=== PATIENT | female | born 1965 | race Caucasian/White ===

== ENCOUNTER → 2024-02-24 07:34 | Outpatient (REF) | payer BC, SELFPAY | LOC: PAVMRI 07:34 | PROVIDERS: ATTENDING PHYSICIAN Nurse Practitioner Family | DX: M54.32 Sciatica, left side (principal); R20.2 Paresthesia of skin; R53.1 Weakness | CPT/HCPCS: 72148 ==

== ENCOUNTER 2025-03-23 12:43 | Day surgery (SDC) | payer BC, SELFPAY ==
[2025-03-23] VITALS (10 sets, daily range): BP systolic 95–176; BP diastolic 56–80; BMI 28.7
[2025-03-23] MEDS: TYLENOL 1000 MG PO (13:08)
[2025-03-23] MEDS: NORMOSOL-R/PLASMALYTE-A 1000 IV (13:08)
--- NOTE | 2025-03-23 19:30 | W.IMMPOSTOP ---
Surgical Immed Post Op Note
-
Primary Surgeon: Jani Peterson MD
Assisting Surgeon: Kiran Galan PA-C
Pre-op Diagnosis: right proximal humerus fracture
Post-op Diagnosis: right proximal humerus fracture
Procedure Performed: open reduction internal fixation right proximal humerus fracture
Anesthesia Type: general
Specimen / Cultures: none
Estimated Blood Loss: 50mL
Complications: none apparent
Operative Findings: valgus impacted proximal humerus fracture without bony apposition
Implants: [place] AxSOS 3 proximal humerus 3 hole plate
Operative dictation #: [id number]
--- NOTE | 2025-03-23 20:20 | PTCARENOTE ---
pt arrived from PACU @ 2019 s/p right humerus ORIF; aquacel dressing CDI; IVF per order; NC @ 2L; VSS; pt AOx3; Bed locked and in lowest position; call bernard within reach; care ongoing.
[2025-03-23] MEDS: COLACE 100 MG PO (20:45)
[2025-03-23] MEDS: NEURONTIN 300 MG PO (22:26)
[2025-03-24] MEDS: ANCEF 5 IV ×2 (00:19→07:58)
[2025-03-24 03:05] VITALS: BP 121/74
[2025-03-24] MEDS: ROXICODONE 5 MG PO (06:35)
[2025-03-24 07:01] LABS: Hematocrit 26.3 % (37.0-47.0); Hemoglobin 8.7 g/dL (12.0-16.0)
[2025-03-24 07:08] LABS: INR 1.02; PT 13.7 Sec (11.4-14.6)
[2025-03-24 07:09] LABS: APTT 31.5 Sec (23.4-35.0)
[2025-03-24 07:10] VITALS: BP 131/74
[2025-03-24 07:28] LABS: Blood Urea Nitrogen 11 mg/dl (7-17); Calcium 8.9 mg/dl (8.4-10.2); Carbon Dioxide 28 mmol/L (22-30); Chloride 106 mmol/L (98-107); Estimated Creatinine Clearance 108 ml/min; Glucose 103 mg/dl (70-99); Potassium 4.5 mmol/L (3.5-5.1); Sodium 138 mmol/L (135-145); eGFR > 60.00
[2025-03-24] MEDS: COLACE 100 MG PO ×2 (07:57→19:36)
[2025-03-24] MEDS: FLUSH (NSS) 1 FLUSH IV (07:58)
[2025-03-24] MEDS: TYLENOL 650 MG PO (09:28)
[2025-03-24] MEDS: ROXICODONE 10 MG PO ×4 (10:30→23:55)
[2025-03-24 11:30] VITALS: BP 140/78
--- NOTE | 2025-03-24 11:37 | W.PN.ORTHO ---
Today's Communication / Plan
-
59F POD 1 R proximal humerus ORIF w/ Dr. Peterson
- Nonweightbearing to right upper extremity
- PT/OT consult placed; patient has primarily been with a walker secondary to recent spine surgery and is now nonweightbearing.
- DVT PPx: ASA 81 mg daily twice daily for 30 days
- Pain regimen in place; her spine surgeons prefer to avoid NSAIDs given recent fusion
- Regular diet
- Potential for discharge however pending PT/OT recommendations, possible discharge planning
Assessment
.
Distal Motor Intact: Yes
Dressing:
Clean, dry and intact.
Assessment:
x-rays of the right shoulder show s/p R proximal humerus ORIF without evidence of complication
Plan
.
Surgery / Date: R proximal humerus ORIF w/ Dr. Peterson
DVT Prophylaxis: Aspirin
Activity:
Out of bed.
PT/OT
Subjective
.
.:
Patient resting comfortably.
Vital Signs and Labs
.
Vital Signs and Labs:
Lab Results
03/24/25 06:18
03/24/25 06:18
Temp Pulse Resp BP Pulse Ox
98.3 F 87 16 131/74 96
03/24/25 07:10 03/24/25 07:10 03/24/25 07:10 03/24/25 07:10 03/24/25 11:21
PT 13.7 Sec (11.4-14.6) 03/24/25 06:18
INR 1.02 03/24/25 06:18
[2025-03-24] MEDS: LOW STRENGTH ASPIRIN 81 MG PO ×2 (11:48→19:36)
[2025-03-24] MEDS: DILAUDID 0.25 MG IV ×3 (11:48→19:36)
--- NOTE | 2025-03-24 12:59 | CM ---
CM following re: discharge planning.
Reviewed pt's chart, met with pt.
Pt is a 59 year old female, admitted with primary dx of Right proximal humerus fracture. POD#1 s/p R proximal humerus ORIF
Pt reports she lives with and a son in a townhouse, has 2 supportive children. Pt reports she had back surgery in the past and has at home following DME: walker, w/c, BSC, shower chair, raised toilet sit. Pt expressed her desire to return
back home with possible outpatient therapy or home PT/OT.
PT and OT will evaluate the pt to determine a level of care at discharge.
PCP: [facility] Culp
Pharmacy: [facility]
D/C plan: pt feels she will return back home with possible outpatient therapy or home PT/OT. Awaiting for PT/OT evaluations and recommendations.
CM will follow with discharge plan updates as hospitalization progresses
[2025-03-24 14:06] VITALS: BP 146/80; PULSE 96; O2SAT 96
[2025-03-24 15:05] VITALS: BP 154/79
[2025-03-24 19:00] VITALS: BP 142/73
[2025-03-24] MEDS: NEURONTIN 300 MG PO (21:44)
[2025-03-24] MEDS: MELATONIN 5 MG PO (21:44)
[2025-03-25 00:13] VITALS: BP 132/78
[2025-03-25] MEDS: DILAUDID 0.25 MG IV (01:18)
[2025-03-25 04:23] VITALS: BP 129/75
[2025-03-25 07:05] VITALS: BP 106/68
--- NOTE | 2025-03-25 07:21 | W.PN.ORTHO ---
Today's Communication / Plan
-
59-year-old female POD #2 right proximal humerus ORIF with Dr. Peterson.
- Nonweightbearing to right upper extremity in sling.
- PT/OT.
- DVT PPx: ASA 81mg BID x 4 weeks.
- Pain regimen in place; her spine surgeons prefer to avoid NSAIDs given recent fusion. We will try Tylenol 1000 mg Q6 and Oxycodone for breakthrough pain; order adjusted.
- Regular diet.
- Potential for discharge later today depending upon pain control and PT/OT recommendations. Discussed with nurse.
Assessment
.
Distal Motor Intact: Yes
Dressing:
Clean, dry and intact.
Assessment:
POD #2 Right Proximal Humerus ORIF with Dr. Peterson.
Plan
.
Surgery / Date: R proximal humerus ORIF w/ Dr. Peterson
DVT Prophylaxis: Aspirin
Activity:
Out of bed.
PT/OT.
Sling to RUE.
Discharge Plan: Home
Discharge Information:
Appreciate CM.
Subjective
.
.:
Patient resting comfortably.
Vital Signs and Labs
.
Vital Signs and Labs:
Lab Results
03/24/25 06:18
03/24/25 06:18
Temp Pulse Resp BP Pulse Ox
98.4 F 87 18 129/75 94
03/25/25 04:23 03/25/25 04:23 03/25/25 04:23 03/25/25 04:23 03/25/25 04:23
PT 13.7 Sec (11.4-14.6) 03/24/25 06:18
INR 1.02 03/24/25 06:18
[2025-03-25] MEDS: TYLENOL 1000 MG PO ×2 (07:52→13:39)
[2025-03-25] MEDS: LOW STRENGTH ASPIRIN 81 MG PO (07:53)
[2025-03-25] MEDS: ROXICODONE 10 MG PO ×2 (07:53→16:32)
[2025-03-25] MEDS: SENOKOT 8.6 MG PO (07:53)
[2025-03-25] MEDS: COLACE 100 MG PO (07:53)
[2025-03-25 10:36] VITALS: BP 136/73; PULSE 85; O2SAT 97
[2025-03-25] MEDS: ROXICODONE 5 MG PO (12:03)
--- NOTE | 2025-03-25 12:35 | CM ---
CM following re: discharge planning.
Reviewed pt's chart, met with pt and pt's niece at bedside.
Pt is POD#2 s/p R proximal humerus ORIF, continue supportive care, pain control. Per Surgery, potential for discharge later today depending upon pain control.
Pt is aware, expressed her agreement and she stated her will transport home.
PT and OT evaluations noted - home PT vs no needs vs outpatient PT/OT recommended. Pt is aware and she stated she preferred outpatient therapy, she has a script to start outpatient therapy after 3 weeks.
Pt reports she lives with and a son in a townhouse, has 2 supportive children.
D/C plan: return back home with outpatient therapy and family support. to transport.
[2025-03-25 15:10] VITALS: BP 129/70
--- NOTE | 2025-03-25 15:53 | W.DCSUMMARY ---
Discharge Summary
Discharge Data
Date of Admission: 03/23/25
Date of Discharge: 03/25/25
Total time spent discharging patient (in min): 45
-
Pending Results: No
Hospital Course
59 year old right hand dominant
female who originally underwent spine surgery approximately 6 weeks ago. At the initial
presentation she was using a walker due to the recovery
from her spinal procedure and she sustained a ground level fall at
home. She landed on her knees and then her right shoulder. Due to
immediate pain and inability to use the right shoulder, she
presented to [facility] where X rays confirmed she had a
proximal humerus fracture. She was seen several days later by Dr. Peterson and
noted that there was minimal apposition of the valgus proximal
humerus fracture. Due to the need to use the right arm to assist in
ambulation as well the lack of bony apposition of the fracture, she
was indicated for open reduction internal fixation of right
proximal humerus fracture. The patient underwent a right proximal humerus ORIF with Dr. Jani Liang without complications. The patient recovered in PACU and was transferred to the floor. The post-operative course remained uncomplicated other
than some initial difficulty with pain control on orals medications as she is limited on NSAIDs at the request of her spine surgeon. At the time of discharge, the patient was noted to be tolerating a regular diet, ambulating with adherence to weight
bearing and activity restrictions, able to accomplish activities of daily living at baseline level, and had pain controlled on oral medications. Prior to discharge, the patient was provided with appropriate discharge/follow up/return instructions,
and discharge medications.
Discharge Plan
-
Patient Disposition: Home (Routine Discharge)
Discharge Diagnosis/Procedures: Right proximal humerus ORIF
Condition: Good
Diet: No restrictions and As tolerated
Activity: Other activity
Additional Activity: No weight bearing to right upper extremity, maintain sling at all times except to shower and dress
Driving Restrictions: Not until seen by your Dr
Bathing Restrictions: OK to Shower
Wound Care: Maintain current dressing until your first postoperative follow-up.
Activity Restrictions/Additional Instructions:
Recommend utilization of cane for balance in the left naty
Instructions: Surgery to fix a broken bone (DC)
Referrals:
Jani Peterson MD [Active, Orthopedics]
Referral Note: Please call to confirm or schedule your first postoperative visit which should be two weeks from the date of surgery
UNKNOWN - PT DOES,NOT KNOW [Family Provider]
Prescriptions:
New
docusate sodium 100 mg Capsule
100 mg PO BID Qty: 30 0RF
aspirin 81 mg Tablet,Chewable
81 mg PO BID Qty: 60 0RF
Continued
sennosides [senna] 8.6 mg Tablet
8.6 mg PO DAILY
acetaminophen 500 mg Tablet
1,000 mg PO Q6H PRN (Reason: pain)
gabapentin 300 mg Capsule
300 mg PO HS
oxycodone 5 mg Tablet
5 mg PO BID PRN (Reason: pain)
nicotine 14 mg/24 hr Patch 24 Hour
1 patch TRANSDERMAL DAILY
Discharge Orders:
Discharge Patient (As Directed); Ordered 03/25/25
Ordered By: Christopher Wade
Discharge Date and Time
Print Language: GUAMANIAN
== END 2025-03-25 17:59 | disposition home or self-care (01) ==
LOC: SDS 12:43
PROVIDERS: ATTENDING PHYSICIAN Student in an Organized Health Care Education/Training Program
DX: S42.294A Other nondisplaced fracture of upper end of right humerus, initial encounter for closed fracture (principal); W18.30XA Fall on same level, unspecified, initial encounter
CPT/HCPCS: 23615; 73030; 76000; 80048; 85014; 85018; 85610; 85730; 97110; 97116; 97162; 97167; 97535; C1713